=== PATIENT | female | born 1975 | race Caucasian/White ===

== ENCOUNTER 2021-08-25 17:47 | Emergency (ER) | payer OTHER, SELFPAY ==
[2021-08-25 17:57] VITALS: BP 169/91; PULSE 97; RESP 16; TEMP 37.1; O2SAT 99; BMI 37.2
--- NOTE | 2021-08-25 18:09 | DI.RAD.S_ITS ---
PROCEDURE: XR CHEST 1V INDICATIONS: chest pain TECHNIQUE: One view of the chest was acquired. COMPARISON: None. FINDINGS: Surgical changes and devices: None. Lungs and pleura: Diffuse interstitial prominence without acute airspace consolidation. No pleural effusions or pneumothorax. Mediastinum: Mediastinal contours appear normal. Heart size is normal. Bones and chest wall: No suspicious bony lesions. Overlying soft tissues appear unremarkable. IMPRESSION: Nonspecific, mild diffuse interstitial prominence without focal consolidations. Findings may represent an infectious/inflammatory process. Early pulmonary edema may have a similar appearance if clinically appropriate. Dictated by: Billy Carlson M.D. on 08/25/2021 at 18:53 Approved by: Billy Carlson M.D. on 08/25/2021 at 18:54
[2021-08-25 18:35] LABS: Add Manual Diff / Slide Review NO; Basophils Absolute Auto 100 /uL (0-100); Basophils Percent Auto 0.8 % (0-2); Eosinophils Absolute Auto 100 /uL (0-450); Eosinophils Percent Auto 1.3 % (2-4); Hematocrit 33.7 % (36-46); Hemoglobin 10.9 g/dL (12.0-16.0); Lymphocytes Absolute Auto 1700 /uL (1100-4500); Lymphocytes Percent Auto 22.9 % (25-40); Mean Corpuscular HGB Conc 32.5 % (30-36); Mean Corpuscular Hemoglobin 24.5 PG (26-34); Mean Corpuscular Volume 75.5 fL (80-100); Monocytes Absolute Auto 400 /uL (0-900); Monocytes Percent Auto 4.6 % (3-14); Neutrophils Absolute Auto 5400 /uL (1500-7000); Neutrophils Percent Auto 70.4 % (50-75); Platelet Count 297 X10^3/uL (150-400); Red Blood Cell Count 4.46 X10^6/uL (4.0-5.2); Red Cell Distribution Width 16.5 % (11.6-14.8); White Blood Cell Count 7.6 X10^3/uL (4.5-11.0)
[2021-08-25 18:40] LABS: Alanine Aminotransferase 34 IU/L (<35); Albumin 4.8 g/dL (3.5-5.0); Albumin Globulin Ratio 1.4 (1.0-2.8); Alkaline Phosphatase 94 U/L (38-126); Aspartate Aminotransferase 27 IU/L (14-36); BUN Creatinine Ratio 19.7 (6-22); Bilirubin Total 0.4 mg/dL (0.2-1.3); Blood Urea Nitrogen 14 mg/dL (7-17); Calcium 9.2 mg/dL (8.4-10.2); Carbon Dioxide 23 mmol/L (22-32); Chloride 106 mmol/L (98-107); Creatine Kinase 80 U/L (30-135); Estimated Glomerular Filt Rate > 60.0 mL/min (>60); Globulin 3.4 g/dL (1.7-4.1); Glucose 106 mg/dL (70-100); HEMOLYSIS < 15 (0-50); Lipase 76 U/L (23-300); Magnesium 1.9 mg/dL (1.6-2.3); Potassium 4.3 mmol/L (3.4-5.1); Sodium 138 mmol/L (137-145); Total Protein 8.2 g/dL (6.3-8.2)
[2021-08-25 18:51] LABS: Troponin I < 0.012 ng/mL (0.01-0.034)
[2021-08-25 20:04] VITALS: BP 140/72; PULSE 69; O2SAT 99
--- NOTE | 2021-08-25 20:20 | ED_ITS ---
HPI - General Adult General Chief complaint: Hypertension Stated complaint: vision changes, high blood pressure Time Seen by Provider: 08/25/21 20:20 Source: patient Mode of arrival: Ambulatory History of Present Illness HPI narrative: 46-year-old woman with a history of hypothyroidism and no significant other medical problems. She lost her primary care physician and has not seen anybody recently. She notes that blood pressures at home have typically been running in the 120/70 range in she had never consider blood pressure an issue. She notes that the last year has been particularly stressful and she has had between 4 5 episodes over the last year that she is concerned may have been panic attacks. She does not have a history of panic or anxiety. She describes these attacks as typically having some sort of systemic complaints such as nausea neck pain low- grade headache and typically resolve within 20-30 minutes. Today she had a similar episode that was associated with peripheral vision changes. She took her blood pressure during the episode and noticed that it was somewhat elevated and came to the emergency department for further evaluation. She reports no visual acuity changes, no recent nausea vomiting diarrhea or fevers. She has had no urinary symptoms and no flank pain. No chest pain or palpitations. Related Data Home Medications Medication Instructions Recorded Confirmed thyroid (pork) 180 mg tablet #0 03/02/16 ([place] Thyroid) Previous Rx's Medication Instructions Recorded hydrocodone 5 mg-acetaminophen 325 1 - 2 tab PO Q4H PRN #20 tab 03/02/16 mg tablet ([place]) ondansetron 4 mg disintegrating 4 mg SUBLINGUAL Q6HP PRN #10 odt 03/02/16 tablet (Zofran ODT) Allergies Allergy/AdvReac Type Severity Reaction Status Date / Time No Known Drug Allergies Allergy Verified 08/25/21 17:57 Review of Systems Review of Systems Narrative: Remainder of complete review of systems is otherwise unremarkable except for that included in the HPI. Patient History Medical History Heart murmur Hypothyroidism (acquired) Social History Smoking Status: Never smoker Smoking Status: Never smoker Substance Use Type: does not use Exam Initial Vital Signs Initial Vital Signs: Vital Signs Temperature 98.7 F 08/25/21 17:57 Pulse Rate 97 H 08/25/21 17:57 Respiratory Rate 16 08/25/21 17:57 Blood Pressure 169/91 H 08/25/21 17:57 Pulse Oximetry 99 08/25/21 17:57 General: Healthy appearing, in no acute distress. Able to give a complete and coherent history. Well-nourished well-developed HEENT: Moist mucous membranes, normal sclera with reactive pupils, Neck: No JVD, supple Respiratory: Lungs are clear to auscultation, no wheezing no rales no rhonchi. Full and symmetrical air movement Cardiac: Regular rate and rhythm 3/6 systolic ejection murmur without an opening snap Abdomen: Soft, nontender, good bowel tones, no flank pain Skin: Warm and dry, no rashes Neurologic: Grossly neurologically intact with no obvious asymmetries or abnormalities Extremities: No trauma, well perfused Psych: Cooperative, appropriate insight and affect Course Orders Ordered: ED Orders 08/25/21 18:09 XR chest 1V Stat Comprehensive Metabolic Panel Stat Lipase Stat Magnesium Stat Troponin & CK Cardiac Panel Stat EKG-12 Lead Stat 08/25/21 18:18 Complete Blood Count AUTO DIFF Stat Vital Signs Vital signs: Vital Signs - 8 hr 08/25/21 17:57 08/25/21 20:04 Temperature 98.7 F Pulse Rate 97 H 69 Respiratory Rate 16 Blood Pressure 169/91 H 140/72 Pulse Oximetry 99 99 Medical Decision Making Lab Data Result diagrams: 08/25/21 18:18 08/25/21 18:09 Labs: Lab Results 08/25/21 08/25/21 Range/Units 18:09 18:18 WBC 7.6 (4.5-11.0) X10^3/uL RBC 4.46 (4.0-5.2) X10^6/uL Hgb 10.9 L (12.0-16.0) g/dL Hct 33.7 L (36-46) % MCV 75.5 L (80-100) fL MCH 24.5 L (26-34) PG MCHC 32.5 (30-36) % RDW 16.5 H (11.6-14.8) % Plt Count 297 (150-400) X10^3/uL Neut % (Auto) 70.4 (50-75) % Lymph % (Auto) 22.9 L (25-40) % [place] % (Auto) 4.6 (3-14) % Eos % (Auto) 1.3 L (2-4) % Baso % (Auto) 0.8 (0-2) % Neut # (Auto) 5400 (9777-2717) /uL Lymph # (Auto) 1700 (8195-7908) /uL [place] # (Auto) 400 (0-900) /uL Eos # (Auto) 100 (0-450) /uL Baso # (Auto) 100 (0-100) /uL Sodium 138 (137-145) mmol/L Potassium 4.3 (3.4-5.1) mmol/L Chloride 106 (98-107) mmol/L Carbon Dioxide 23 (22-32) mmol/L BUN 14 (7-17) mg/dL Creatinine 0.71 (0.52-1.04) mg/dL Estimated GFR > 60.0 (>60) mL/min BUN/Creatinine Ratio 19.7 (6-22) Glucose 106 H (70-100) mg/dL Calcium 9.2 (8.4-10.2) mg/dL Magnesium 1.9 (1.6-2.3) mg/dL Total Bilirubin 0.4 (0.2-1.3) mg/dL AST 27 (14-36) IU/L ALT 34 (<35) IU/L Alkaline Phosphatase 94 (38-126) U/L Total Creatine Kinase 80 (30-135) U/L CK-MB (CK-2) TNP CK-MB (CK-2) Rel Index TNP Troponin I < 0.012 (0.01-0.034) ng/mL Total Protein 8.2 (6.3-8.2) g/dL Albumin 4.8 (3.5-5.0) g/dL Globulin 3.4 (1.7-4.1) g/dL Albumin/Globulin Ratio 1.4 (1.0-2.8) Lipase 76 (23-300) U/L Point of Care Testing Test Results Negative Urine Dip Bedside Urine Glucose Negative Bedside Urine Bilirubin - Negative Bedside Urine Ketone - Negative Urine Specific [place] 1.010 Bedside Urine Occult Blood - Negative Bedside Urine pH 6.0 Bedside Urine Protein - Negative Bedside Urine Urobilinogen - Negative Bedside Urine Nitrite - Negative Bedside Urine Leukocytes - Negative Esterase Point of care testing: Point of Care Testing Test Results Negative Urine Dip Bedside Urine Glucose Negative Bedside Urine Bilirubin - Negative Bedside Urine Ketone - Negative Urine Specific [place] 1.010 Bedside Urine Occult Blood - Negative Bedside Urine pH 6.0 Bedside Urine Protein - Negative Bedside Urine Urobilinogen - Negative Bedside Urine Nitrite - Negative Bedside Urine Leukocytes - Negative Esterase Imaging Data Chest x-ray: Radiologist's Impression: FINDINGS:? ? Surgical changes and devices:? None.? ? Lungs and pleura:? Diffuse interstitial prominence without acute airspace consolidation.? No pleural effusions or pneumothorax.? ? Mediastinum:? Mediastinal contours appear normal.? Heart size is normal.? ? Bones and chest wall:? No suspicious bony lesions.? Overlying soft tissues appear unremarkable.? ? IMPRESSION:? Nonspecific, mild diffuse interstitial prominence without focal consolidations.? Findings may represent an infectious/inflammatory process.? Early pulmonary edema may have a similar appearance if clinically appropriate. ? ? Dictated by: Billy Carlson M.D. on 08/25/2021 at 18:53 ? ? ECG Data Interpretation: Sinus rhythm at a rate of 66 Normal intervals, normal axis No acute ischemic changes MDM Narrative Medical decision making narrative: 46-year-old woman presents with 20 minutes of peripheral visual change dull headache and concerns of high blood pressure. On further questioning I am wondering if these ?panic attack? episodes that she is having that sound far mor e mild than a traditional panic attack or actually some type of ocular migraine for other migraine variant. While in the emergency department her blood pressure has come down nicely and at time of discharge is 130/60 with no other intervention. Labs, EKG and chest x-ray are all equally reassuring. We discussed following up with the primary doctor. I recommended keeping track of blood pressures regularly to discuss this when she does establish care with her doctor. We also discussed lifestyle changes to better manage stress, diet and increasing exercise. We discussed caffeine and I suggested avoiding caffeine in the mid afternoons and seeing if this helps improve overall sleep as well as trying to decrease carbohydrates in the day so she does not have the afternoon slump that wants her to have the caffeine in the afternoon Regarding her heart murmur there is no opening snaps she notes that the murmur has been present the majority of her life the last echo she had was at the age o f 18. The possibility of mitral valve prolapse and association with anxiety attacks as well as headaches. Did recommend she discuss this with her new primary care physician and consider echocardiogram as an outpatient. Questions are answered, reassurance is given she is safe for home discharge Discharge Plan Departure Patient Disposition: Home Clinical Impression: Ocular migraine, Heart murmur Instructions: DI for High Blood Pressure Activity Restrictions/Additional Instructions: Thank you for coming in today Your workup was absolutely reassuring with no evidence of acute stroke. Your blood pressures come down nicely with no intervention on our part. I would recommend that you continue checking daily blood pressures and discussed these with her primary care doctor. The 1st steps in getting to the help BS blood pressure are managing lifestyle including reducing stressors as much as possible, improving diet, regular exercise, improving sleep, decreasing caffeine. Frequently these interventions can lead to weight loss and weight loss also improves blood pressure. I also noticed a small heart murmur. It does not sound particularly concerning however, it likely is worth having an outpatient echocardiogram to fully evaluate the heart murmur and see if any additional follow-up is required. I wish you the very best Prescriptions: No Action thyroid (pork) [[place] Thyroid] 180 mg tablet Qty: 0 0RF hydrocodone-acetaminophen [[place]] 5 MG/325 MG tablet 1 - 2 tab PO Q4H PRNQty: 20 0RF ondansetron [Zofran ODT] 4 MG tablet,disintegrating 4 mg Sublingual Q6HP PRNQty: 10 0RF
== END 2021-08-25 20:54 | disposition home or self-care (01) ==
PROVIDERS: Emergency Provider Emergency Medicine
DX: G43.809 Other migraine, not intractable, without status migrainosus (principal); R01.1 Cardiac murmur, unspecified
CPT/HCPCS: 36415; 71045; 80053; 81003; 81025; 82550; 83690; 83735; 84484; 85025; 93005; 99283; 99284

== ENCOUNTER 2022-09-19 21:10 | Emergency (ER) | payer OTHER, SELFPAY ==
[2022-09-19] VITALS (7 sets, daily range): BP systolic 121–180; BP diastolic 60–100; PULSE 70–90; RESP 16–22; TEMP 36.9; O2SAT 97–99; BMI 35.4
--- NOTE | 2022-09-19 21:22 | DI.RAD.S_ITS ---
PROCEDURE: XR CHEST 1V INDICATIONS: chest pain TECHNIQUE: One view of the chest was acquired. COMPARISON: [facility], CR, XR CHEST 1V, 08/25/2021, 18:19. FINDINGS: Surgical changes and devices: None. Lungs and pleura: Lungs are clear. No pleural effusions or pneumothorax. Mediastinum: Mediastinal contours appear normal. Heart size is normal. Bones and chest wall: No suspicious bony lesions. Overlying soft tissues appear unremarkable. IMPRESSION: 1. No acute cardiopulmonary disease. Dictated by: Juan Gonzalez M.D. on 09/19/2022 at 23:12 Approved by: Juan Gonzalez M.D. on 09/19/2022 at 23:12
[2022-09-19] MEDS: ASPIRIN 81 MG CHEW TAB 324 MG PO (21:38)
[2022-09-19 21:40] LABS: INR 0.9 (0.9-1.3); Prothrombin Time 10.8 SECONDS (10.1-12.7)
[2022-09-19 21:44] LABS: Add Manual Diff / Slide Review NO; Basophils Absolute Auto 100 /uL (0-100); Basophils Percent Auto 0.9 % (0-2); Eosinophils Absolute Auto 100 /uL (0-450); Eosinophils Percent Auto 1.6 % (2-4); Hematocrit 33.2 % (36-46); Hemoglobin 10.7 g/dL (12.0-16.0); Lymphocytes Absolute Auto 2400 /uL (1100-4500); Lymphocytes Percent Auto 29.1 % (25-40); Mean Corpuscular HGB Conc 32.2 % (30-36); Mean Corpuscular Hemoglobin 22.8 PG (26-34); Mean Corpuscular Volume 70.9 fL (80-100); Monocytes Absolute Auto 600 /uL (0-900); Monocytes Percent Auto 7.1 % (3-14); Neutrophils Absolute Auto 5000 /uL (1500-7000); Neutrophils Percent Auto 61.3 % (50-75); Platelet Count 342 X10^3/uL (150-400); Red Blood Cell Count 4.68 X10^6/uL (4.0-5.2); White Blood Cell Count 8.1 X10^3/uL (4.5-11.0)
[2022-09-19 21:45] LABS: Alanine Aminotransferase 25 IU/L (<35); Albumin 4.9 g/dL (3.5-5.0); Albumin Globulin Ratio 1.5 (1.0-2.8); Alkaline Phosphatase 116 U/L (38-126); Aspartate Aminotransferase 21 IU/L (14-36); BUN Creatinine Ratio 18.2 (6-22); Bilirubin Total 0.4 mg/dL (0.2-1.3); Blood Urea Nitrogen 14 mg/dL (7-17); Carbon Dioxide 27 mmol/L (22-32); Chloride 103 mmol/L (98-107); Creatine Kinase 71 U/L (30-135); Estimated Glomerular Filt Rate > 60 mL/min (>60); Globulin 3.2 g/dL (1.7-4.1); Glucose 146 mg/dL (70-100); HEMOLYSIS < 15 (0-50); Lipase 113 U/L (23-300); Magnesium 1.9 mg/dL (1.6-2.3); Potassium 3.9 mmol/L (3.4-5.1); Sodium 139 mmol/L (137-145); Total Protein 8.1 g/dL (6.3-8.2)
[2022-09-19 21:56] LABS: PTT Partial Thromboplastin Tim 30 SECONDS (26-36)
[2022-09-19 21:57] LABS: Troponin I < 0.012 ng/mL (0.01-0.034)
[2022-09-19 22:07] LABS: COVID19 -Nasal RAPID Negative (Negative)
[2022-09-19 23:38] LABS: Creatine Kinase 64 U/L (30-135)
[2022-09-19 23:51] LABS: Troponin I < 0.012 ng/mL (0.01-0.034)
[2022-09-20] VITALS: BP 126/60; PULSE 72; RESP 17; O2SAT 98
--- NOTE | 2022-09-20 00:17 | ED_ITS ---
HPI - Chest Pain General Chief Complaint: Chest Pain Stated Complaint: thinks she's having a heart attack- chest pain- Time Seen by Provider: 09/19/22 21:58 Source: patient and family Mode of arrival: Ambulatory Limitations: no limitations History of Present Illness HPI narrative: 47-year-old female here for evaluation of left-sided chest discomfort. She states that over the past couple days she just generally has not felt very well and felt fatigued. Earlier today she started to have discomfort in her chest that did radiate to her left side. At the time of my evaluation her symptoms have really improved. No abdominal pain. No nausea or vomiting. No change in bowel habits. Has never had symptoms like this in the past. Related Data Home Medications Medication Instructions Recorded Confirmed thyroid (pork) 180 mg tablet ##0 03/02/16 ([place] Thyroid) Previous Rx's Medication Instructions Recorded hydrocodone 5 mg-acetaminophen 325 1 - 2 tab PO Q4H PRN #20 tabs 03/02/16 mg tablet ([place]) ondansetron 4 mg disintegrating 4 mg sublingual Q6HP PRN ##10 03/02/16 tablet (Zofran ODT) Allergies Allergy/AdvReac Type Severity Reaction Status Date / Time No Known Drug Allergies Allergy Verified 08/25/21 17:57 Review of Systems Constitutional Constitutional: Reports system reviewed and no additional complaints, except as documented Cardiovascular Cardiovascular: Reports system reviewed and no additional complaints, except as documented Respiratory Respiratory: Reports system reviewed and no additional complaints, except as documented Integumentary/Breasts Skin/Breast: Reports system reviewed and no additional complaints, except as documented Neurologic Neurologic: Reports system reviewed and no additional complaints, except as documented Hematologic/Lymphatic On Anticoagulants: No Patient History Medical History Heart murmur Hypothyroidism (acquired) Social History Smoking Status: Never smoker Smoking Status: Never smoker Substance Use Type: does not use Exam Initial Vital Signs Initial Vital Signs: Vital Signs Temperature 98.4 F 09/19/22 21:12 Pulse Rate 90 09/19/22 21:12 Respiratory Rate 18 09/19/22 21:12 Blood Pressure 180/100 H 09/19/22 21:12 Pulse Oximetry 98 09/19/22 21:12 Oxygen Delivery Method Room Air 09/19/22 21:12 Const General: cooperative, comfortable and No ill appearing Resp Effort & Inspection: normal respiratory effort Auscultation: clear to auscultation bilaterally Cardio Rate: regular rate GI Inspection: normal to inspection Skin General: no rashes or lesions noted Neuro General: patient alert, patient awake, patient oriented x3 and moves all extremities Extrem General: capillary refill normal Scores HEART Score Heart Score history: Slightly Suspicious Heart Score EKG: Normal Heart Score Age: 45-64 years old Heart Score risk factors: No known risk factors Heart Score troponin: < or = to normal limit Heart Score Total: 1 Course Orders Ordered: ED Orders 09/19/22 21:22 XR chest 1V Stat EKG-12 Lead Stat 09/19/22 21:25 Complete Blood Count AUTO DIFF Stat Comprehensive Metabolic Panel Stat Lipase Stat Magnesium Stat PTT Partial Thromboplastin [place] Stat Prothrombin Time INR Stat Troponin & CK Cardiac Panel Stat 09/19/22 21:30 COVID19 -Nasal RAPID Stat 09/19/22 23:16 Troponin & CK Cardiac Panel Stat Discontinued Medications Aspirin (Aspirin 81 Mg Chew Tab) 324 mg PO NOW ONE Stop: 09/19/22 21:23 Last Admin: 09/19/22 21:38 Dose: 324 mg Documented By: ALTHEA Vital Signs Vital signs: Vital Signs - 8 hr 09/19/22 22:30 09/19/22 22:30 09/19/22 23:00 Pulse Rate 73 Respiratory Rate 16 Blood Pressure 124/66 122/61 Pulse Oximetry 97 Oxygen Delivery Method 09/19/22 23:00 09/19/22 23:11 09/19/22 23:11 Pulse Rate 73 80 Respiratory Rate 16 22 Blood Pressure 125/61 Pulse Oximetry 98 98 Oxygen Delivery Method 09/19/22 23:30 09/19/22 23:30 09/20/22 00:00 Pulse Rate 70 Respiratory Rate 17 Blood Pressure 121/60 126/60 Pulse Oximetry 98 Oxygen Delivery Method Room Air 09/20/22 00:00 Pulse Rate 72 Respiratory Rate 17 Blood Pressure Pulse Oximetry 98 Oxygen Delivery Method MDM - Chest Pain Lab Data Attestation: I reviewed the patient's lab results. 09/19/22 21:25 09/19/22 21:25 Labs: Lab Results 09/19/22 09/19/22 09/19/22 Range/Units 21:25 21:25 21:25 WBC 8.1 (4.5-11.0) X10^3/uL RBC 4.68 (4.0-5.2) X10^6/uL Hgb 10.7 L (12.0-16.0) g/dL Hct 33.2 L (36-46) % MCV 70.9 L (80-100) fL MCH 22.8 L (26-34) PG MCHC 32.2 (30-36) % RDW 17.0 H (11.6-14.8) % Plt Count 342 (150-400) X10^3/uL Neut % (Auto) 61.3 (50-75) % Lymph % (Auto) 29.1 (25-40) % [place] % (Auto) 7.1 (3-14) % Eos % (Auto) 1.6 L (2-4) % Baso % (Auto) 0.9 (0-2) % Neut # (Auto) 5000 (9946-6482) /uL Lymph # (Auto) 2400 (5514-7440) /uL [place] # (Auto) 600 (0-900) /uL Eos # (Auto) 100 (0-450) /uL Baso # (Auto) 100 (0-100) /uL PT 10.8 (10.1-12.7) SECONDS INR 0.9 (0.9-1.3) APTT 30 (26-36) SECONDS Sodium 139 (137-145) mmol/L Potassium 3.9 (3.4-5.1) mmol/L Chloride 103 (98-107) mmol/L Carbon Dioxide 27 (22-32) mmol/L BUN 14 (7-17) mg/dL Creatinine 0.77 (0.52-1.04) mg/dL Estimated GFR > 60 (>60) mL/min BUN/Creatinine Ratio 18.2 (6-22) Glucose 146 H (70-100) mg/dL Calcium 9.0 (8.4-10.2) mg/dL Magnesium 1.9 (1.6-2.3) mg/dL Total Bilirubin 0.4 (0.2-1.3) mg/dL AST 21 (14-36) IU/L ALT 25 (<35) IU/L Alkaline Phosphatase 116 (38-126) U/L Total Creatine Kinase 71 (30-135) U/L CK-MB (CK-2) TNP CK-MB (CK-2) Rel Index TNP Troponin I < 0.012 (0.01-0.034) ng/mL Total Protein 8.1 (6.3-8.2) g/dL Albumin 4.9 (3.5-5.0) g/dL Globulin 3.2 (1.7-4.1) g/dL Albumin/Globulin Ratio 1.5 (1.0-2.8) Lipase 113 (23-300) U/L SARS-CoV-2 (PCR) (Negative) 09/19/22 09/19/22 Range/Units 21:30 23:16 WBC (4.5-11.0) X10^3/uL RBC (4.0-5.2) X10^6/uL Hgb (12.0-16.0) g/dL Hct (36-46) % MCV (80-100) fL MCH (26-34) PG MCHC (30-36) % RDW (11.6-14.8) % Plt Count (150-400) X10^3/uL Neut % (Auto) (50-75) % Lymph % (Auto) (25-40) % [place] % (Auto) (3-14) % Eos % (Auto) (2-4) % Baso % (Auto) (0-2) % Neut # (Auto) (8027-5228) /uL Lymph # (Auto) (5954-2300) /uL [place] # (Auto) (0-900) /uL Eos # (Auto) (0-450) /uL Baso # (Auto) (0-100) /uL PT (10.1-12.7) SECONDS INR (0.9-1.3) APTT (26-36) SECONDS Sodium (137-145) mmol/L Potassium (3.4-5.1) mmol/L Chloride (98-107) mmol/L Carbon Dioxide (22-32) mmol/L BUN (7-17) mg/dL Creatinine (0.52-1.04) mg/dL Estimated GFR (>60) mL/min BUN/Creatinine Ratio (6-22) Glucose (70-100) mg/dL Calcium (8.4-10.2) mg/dL Magnesium (1.6-2.3) mg/dL Total Bilirubin (0.2-1.3) mg/dL AST (14-36) IU/L ALT (<35) IU/L Alkaline Phosphatase (38-126) U/L Total Creatine Kinase 64 (30-135) U/L CK-MB (CK-2) TNP CK-MB (CK-2) Rel Index TNP Troponin I < 0.012 (0.01-0.034) ng/mL Total Protein (6.3-8.2) g/dL Albumin (3.5-5.0) g/dL Globulin (1.7-4.1) g/dL Albumin/Globulin Ratio (1.0-2.8) Lipase (23-300) U/L SARS-CoV-2 (PCR) Negative (Negative) Imaging Data Chest x-ray: Radiologist's Impression: PROCEDURE:? XR CHEST 1V ? INDICATIONS:? chest pain ? TECHNIQUE:? One view of the chest was acquired.? ? COMPARISON:? [facility], , XR CHEST 1V, 08/25/2021, 18:19. ? FINDINGS:? ? Surgical changes and devices:? None.? ? Lungs and pleura:? Lungs are clear.? No pleural effusions or pneumothorax.? ? Mediastinum:? Mediastinal contours appear normal.? Heart size is normal.? ? Bones and chest wall:? No suspicious bony lesions.? Overlying soft tissues appear unremarkable.? ? IMPRESSION:? ? 1.? No acute cardiopulmonary disease. ECG Data Interpretation: Sinus rhythm Ventricular rate 92 Normal axis Normal QRS No ST T wave changes MDM Narrative Medical decision making narrative: Patient is asymptomatic. Low risk heart score. EKG unremarkable. Chest x-ray unremarkable. Exam unremarkable. Troponins are negative. Lungs are unremarkable. No indication for antibiotics. Discussion with her regarding her symptoms. She does understand the lack of a definitive diagnosis although she was given very specific return precautions. Advised that she contact her primary doctor for follow-up. She expressed understanding and agreement. Discharge Plan Departure Patient Disposition: Home Clinical Impression: Atypical chest pain Instructions: DI for Atypical Chest Pain Activity Restrictions/Additional Instructions: I do recommend that you talk with your primary doctor about further workup to include potentially having a Holter monitor or even a stress test. Continue all of your medications as directed. Return to the emergency department for new or worsening symptoms. Prescriptions: No Action thyroid (pork) [[place] Thyroid] 180 mg tablet Qty: 0 hydrocodone-acetaminophen [[place]] 5 MG/325 MG tablet 1 - 2 tab PO Q4H PRNQty: 20 0RF ondansetron [Zofran ODT] 4 MG tablet,disintegrating 4 mg Sublingual Q6HP PRNQty: 10 0RF Stand Alone Forms: Patient Portal/API
== END 2022-09-20 00:35 | disposition home or self-care (01) ==
PROVIDERS: Emergency Provider Emergency Medicine
DX: R07.89 Other chest pain (principal); Z20.822 Contact with and (suspected) exposure to COVID-19
CPT/HCPCS: 36415; 71045; 80053; 82550; 83690; 83735; 84484; 85025; 85610; 85730; 87635; 93005; 93010; 99284; C9803

== ENCOUNTER 2024-10-31 19:51 | Emergency (ER) | payer OTHER, SELFPAY ==
[2024-10-31 20:05] VITALS: BP 177/84; PULSE 83; RESP 16; TEMP 36.9; O2SAT 98; BMI 35.4
[2024-10-31 21:41] VITALS: BP 167/119; PULSE 76; RESP 22; O2SAT 99
[2024-10-31 21:51] LABS: Urine Volume 10mL (spun)
[2024-10-31 21:52] LABS: Bacteria Urine Few (2-10); Culture Indicated Urine Cult Not Indicated; RBC Urine 10-30/HPF (0-5/HPF); Squamous Epithelial Cell Urine 5-10 /HPF (0-5/HPF); WBC Urine 0-1/HPF (0-5/HPF)
[2024-11-01] VITALS (7 sets, daily range): BP systolic 113–163; BP diastolic 56–75; PULSE 60–71; O2SAT 96–99
--- NOTE | 2024-11-01 00:20 | DI.CT.S_ITS ---
PROCEDURE: CT ABDOMEN PELVIS WO CON INDICATIONS: pain, possible kidney stone TECHNIQUE: After the administration of oral contrast, 5 mm thick sections acquired from the diaphragms to the symphysis. 5 mm coronal and sagittal reformats were performed. For radiation dose reduction, the following was used: automated exposure control, adjustment of mA and/or kV according to patient size. COMPARISON: Not available FINDINGS: Image quality: Diagnostic Lower chest: Small left fat containing Bochdalek's hernia. Normal heart size. Liver: Hepatic steatosis and hepatomegaly. No contour deforming mass. Solid organs are not well assessed on noncontrast CT Gallbladder and biliary system: Unremarkable, nondilated Pancreas: No ductal dilation Spleen: Prominent at 12 cm Adrenals: No discrete nodules Kidneys: Moderate to severe left hydroureteronephrosis. 9 x 8 x 7 mm stone is seen at the left UVJ. [id number] surrounding edema. Nonobstructing right calyceal calculi are seen, under 5 mm. No right hydronephrosis. Vessels and lymph nodes: No abdominal aortic aneurysm. No pathologic lymph nodes by size criteria. Bowel and peritoneum: No small bowel obstruction. No pathologic ascites or drainable abscess. Nondilated appendix Body wall: Tiny fat containing umbilical hernia Pelvis: Under distended urinary bladder. Pelvic phleboliths are seen. Probable right 3.1 cm ovarian cyst. Bones: No aggressive appearing osseous abnormality. There are degenerative changes. IMPRESSION: Moderate to severe left hydroureteronephrosis due to a UVJ stone measuring up to 9 mm. Nonobstructing small right renal calculi also seen. Hepatomegaly and steatosis. Other findings above. Dictated by: Mitchell Miller M.D. on 11/01/2024 at 0:41 Approved by: Mitchell Miller M.D. on 11/01/2024 at 0:44
[2024-11-01] MEDS: ONDANSETRON 4 MG/2 ML INJ IV (00:38)
--- NOTE | 2024-11-01 00:43 | ED.GENADULT ---
HPI - General Adult General Chief complaint: Urogenital-Female Stated complaint: pain possable kiney stone Time Seen by Provider: 11/01/24 00:20 Source: patient Mode of arrival: Ambulatory History of Present Illness HPI narrative: 49-year-old female with history of kidney stones, complains of right groin area discomfort typical of her previous kidney pain. Last month she had suspected left kidney stone, took a dose of Flomax, then seemed to have resolution of the symptoms. She is still has Flomax at home to use if needed, in fact took a dose earlier today. She has some nausea without vomiting. No loose stools or black or red stools. No lifting, twisting, trauma, new activities. No painful or frequent urination. Related Data Home Medications ?Medication ?Instructions ?Recorded ?Confirmed propranolol 10 mg tablet 10 mg PO PRN PRN anxiety, elevated 11/01/24 11/01/24 heart rate tamsulosin 0.4 mg capsule (Flomax) 0.4 mg PO DAILY 11/01/24 11/01/24 Previous Rx's ?Medication ?Instructions ?Recorded hydrocodone 5 mg-acetaminophen 325 1 tab PO Q6H PRN pain #14 tabs 11/01/24 mg tablet naproxen 500 mg tablet 500 mg PO BID 7 days #14 tabs 11/01/24 Allergies Allergy/AdvReac Type Severity Reaction Status Date / Time No Known Drug Allergies Allergy Verified 10/31/24 20:06 Patient History Medical History Heart murmur Hypothyroidism (acquired) Social History Smoking Status: Never smoker Smoking Status: Never smoker Exam Narrative Exam Narrative: GENERAL: Well-developed patient, in mild distress. HEAD: Atraumatic. Normocephalic. EYES: Pupils equal round and reactive. Extraocular motions intact. No scleral icterus. No injection or drainage. ENT: Nose without bleeding, purulent drainage. Throat without erythema, tonsillar hypertrophy or exudate. Airway patent. NECK: Trachea midline. Non tender CARDIOVASCULAR: Regular rate and rhythm without murmurs, gallops, or rubs. RESPIRATORY: Clear to auscultation. Breath sounds equal bilaterally. No wheezes, rales, or rhonchi. GASTROINTESTINAL: Abdomen soft, non-tender, nondistended. EXTREMITIES: No edema or joint tenderness. BACK: Nontender without deformity or crepitance. No flank tenderness. NEURO: AOx3. Motor functions grossly nonfocal SKIN: No rash or erythema of visible areas Initial Vital Signs Initial Vital Signs: Vital Signs Temperature 98.5 F 10/31/24 20:05 Pulse Rate 83 10/31/24 20:05 Respiratory Rate 16 10/31/24 20:05 Blood Pressure 177/84 H 10/31/24 20:05 Pulse Oximetry 98 10/31/24 20:05 Oxygen Delivery Method Room Air 10/31/24 20:05 Course Orders Ordered: ED Orders 10/31/24 20:30 Urine Culture Stat Urine Microscopic Stat 11/01/24 00:20 CT abdomen pelvis wo con Stat 11/01/24 01:00 CBC Auto Diff [Complete Blood Count AUTO DIFF] Stat CMP [Comprehensive Metabolic Panel] Stat Discontinued Medications Hydrocodone Bitart/Acetaminophen (Hydrocodone/Acet 5/325 Prepack) 1 bottle MISC DIRECTED ONE Stop: 11/01/24 02:05 Last Admin: 11/01/24 02:15 Dose: 1 bottle Documented By: BRAD Hydromorphone HCl (Hydromorphone 0.5 Mg Inj) 0.5 mg IV NOW ONE Stop: 11/01/24 00:38 Last Admin: 11/01/24 00:45 Dose: 0.5 mg Documented By: JAVIER Ketorolac Tromethamine (Ketorolac 30 Mg/Ml Vial) 15 mg IV NOW ONE Stop: 11/01/24 00:50 Last Admin: 11/01/24 01:00 Dose: 15 mg Documented By: JAVIER Ondansetron HCl (Ondansetron 4 Mg/2 Ml Inj) 4 mg IV NOW PRN PRN Reason: Nausea And Vomiting Last Admin: 11/01/24 00:38 Dose: 4 mg Documented By: JAVIER Ondansetron HCl (Ondansetron 4 Mg Odt) 4 mg PO NOW PRN PRN Reason: Nausea And Vomiting Ondansetron HCl (Ondansetron 4 Mg Odt Prepack) 1 bottle MISC DIRECTED ONE Stop: 11/01/24 02:05 Last Admin: 11/01/24 02:15 Dose: 1 bottle Documented By: BRAD Vital Signs Vital signs: Vital Signs - 8 hr 10/31/24 20:05 10/31/24 21:41 11/01/24 00:32 Temperature 98.5 F Pulse Rate 83 76 69 Respiratory Rate 16 22 Blood Pressure 177/84 H 167/119 H Pulse Oximetry 98 99 98 Oxygen Delivery Method Room Air Room Air 11/01/24 00:33 11/01/24 00:33 11/01/24 01:00 Temperature Pulse Rate 71 63 Respiratory Rate Blood Pressure 151/71 H Pulse Oximetry 99 96 Oxygen Delivery Method 11/01/24 01:00 11/01/24 01:30 11/01/24 01:31 Temperature Pulse Rate 60 60 Respiratory Rate Blood Pressure 163/75 H Pulse Oximetry 98 98 Oxygen Delivery Method 11/01/24 01:31 11/01/24 02:00 11/01/24 02:00 Temperature Pulse Rate 60 Respiratory Rate Blood Pressure 135/67 131/63 Pulse Oximetry 97 Oxygen Delivery Method 11/01/24 02:12 11/01/24 02:12 Temperature Pulse Rate 70 Respiratory Rate Blood Pressure 113/56 L Pulse Oximetry 99 Oxygen Delivery Method Medical Decision Making Lab Data Lab results reviewed: Yes I reviewed the patient's lab results. Lab results narrative: White blood cell count 03501, hemoglobin 9.5, platelets adequate. Glucose 146. BUN 15 with creatinine 1.02 normal renal function. Electrolytes show sodium 132 diminished, normal potassium, serum CO2 22 normal. Liver functions normal. Urinalysis without obvious infection. 11/01/24 01:00 11/01/24 01:00 Labs: Lab Results 10/31/24 11/01/24 Range/Units 20:30 01:00 WBC 11.1 H (4.5-11.0) X10^3/uL RBC 4.28 (4.0-5.2) X10^6/uL Hgb 9.5 L (12.0-16.0) g/dL Hct 30.0 L (36-46) % MCV 70.1 L (80-100) fL MCH 22.1 L (26-34) PG MCHC 31.6 (30-36) % RDW 18.4 H (11.6-14.8) % Plt Count 283 (150-400) X10^3/uL Neut % (Auto) 86.9 H (50-75) % Lymph % (Auto) 8.8 L (25-40) % Gonzales % (Auto) 3.8 (3-14) % Eos % (Auto) 0.2 L (2-4) % Baso % (Auto) 0.3 (0-2) % Neut # (Auto) 9700 H (8729-1904) /uL Lymph # (Auto) 1000 L (8439-7755) /uL Gonzales # (Auto) 400 (0-900) /uL Eos # (Auto) 0 (0-450) /uL Baso # (Auto) 0 (0-100) /uL Sodium 132 L (137-145) mmol/L Potassium 3.9 (3.4-5.1) mmol/L Chloride 100 (98-107) mmol/L Carbon Dioxide 22 (22-32) mmol/L BUN 15 (7-17) mg/dL Creatinine 1.02 (0.52-1.04) mg/dL Estimated GFR > 60 (>60) mL/min BUN/Creatinine Ratio 14.7 (6-22) Glucose 146 H (70-99) mg/dL Calcium 9.4 (8.4-10.2) mg/dL Total Bilirubin 0.7 (0.2-1.3) mg/dL AST 26 (14-36) IU/L ALT 28 (<35) IU/L Alkaline Phosphatase 83 (38-126) U/L Total Protein 7.4 (6.3-8.2) g/dL Albumin 4.4 (3.5-5.0) g/dL Globulin 3.0 (1.7-4.1) g/dL Albumin/Globulin Ratio 1.5 (1.0-2.8) Urine RBC 10-30/hpf H (0-5/HPF) Urine WBC 0-1/hpf (0-5/HPF) Ur Squamous Epith Cells 5-10 /hpf H (0-5/HPF) Urine Bacteria Few (2-10) H (None) Ur Culture Indicated? Cult not indicated Vol Urine Centrifuged 10ml (spun) Point of Care Testing Test Results Negative Urine Dip Bedside Urine Glucose Negative Bedside Urine Bilirubin - Negative Bedside Urine Ketone ++ 40 Urine Specific [place] 1.015 Bedside Urine Occult Blood ++ Bedside Urine pH 6.0 Bedside Urine Protein - Negative Bedside Urine Urobilinogen - Negative Bedside Urine Nitrite - Negative Bedside Urine Leukocytes - Negative Esterase Point of care testing: Point of Care Testing Test Results Negative Urine Dip Bedside Urine Glucose Negative Bedside Urine Bilirubin - Negative Bedside Urine Ketone ++ 40 Urine Specific [place] 1.015 Bedside Urine Occult Blood ++ Bedside Urine pH 6.0 Bedside Urine Protein - Negative Bedside Urine Urobilinogen - Negative Bedside Urine Nitrite - Negative Bedside Urine Leukocytes - Negative Esterase Imaging Data CT scan - abdomen/pelvis: Radiologist's Impression: [address] [address] [address] Scan Report Signed Patient: Layne Tompkins MR#: [id number] : 1975 Acct:[id number] Age/Sex: 49 / F Date of Service: 11/01/24 Loc: ED Accession Number: [id number] Procedure: CT abdomen pelvis wo con Ordering Provider: Kenji Kahn MD PROCEDURE: CT ABDOMEN PELVIS WO CON INDICATIONS: pain, possible kidney stone TECHNIQUE: After the administration of oral contrast, 5 mm thick sections acquired from the diaphragms to the symphysis. 5 mm coronal and sagittal reformats were performed. For radiation dose reduction, the following was used: automated exposure control, adjustment of mA and/or kV according to patient size. COMPARISON: Not available FINDINGS: Image quality: Diagnostic Lower chest: Small left fat containing Bochdalek's hernia. Normal heart size. Liver: Hepatic steatosis and hepatomegaly. No contour deforming mass. Solid organs are not well assessed on noncontrast CT Gallbladder and biliary system: Unremarkable, nondilated Pancreas: No ductal dilation Spleen: Prominent at 12 cm Adrenals: No discrete nodules Kidneys: Moderate to severe left hydroureteronephrosis. 9 x 8 x 7 mm stone is seen at the left UVJ. Lmcy-tn-soofenbt surrounding edema. Nonobstructing right calyceal calculi are seen, under 5 mm. No right hydronephrosis. Vessels and lymph nodes: No abdominal aortic aneurysm. No pathologic lymph nodes by size criteria. Bowel and peritoneum: No small bowel obstruction. No pathologic ascites or drainable abscess. Nondilated appendix Body wall: Tiny fat containing umbilical hernia Pelvis: Under distended urinary bladder. Pelvic phleboliths are seen. Probable right 3.1 cm ovarian cyst. Bones: No aggressive appearing osseous abnormality. There are degenerative changes. IMPRESSION: Moderate to severe left hydroureteronephrosis due to a UVJ stone measuring up to 9 mm. Nonobstructing small right renal calculi also seen. Hepatomegaly and steatosis. Other findings above. Dictated by: Mitchell Miller M.D. on 11/01/2024 at 0:41 Approved by: Mitchell Miller M.D. on 11/01/2024 at 0:44 MDM Narrative Medical decision making narrative: 49-year-old female with history of kidney stones, last month had left lower quadrant left groin area stone that seemed to be improved after taking Flomax dose. No confirmation of passage recalled. Now with right groin area discomfort, concerned she might be passing another stone. No fevers or chills. No nausea or vomiting. Initial labs: White blood cell count 06042, hemoglobin 9.5, platelets adequate. Glucose 146. BUN 15 with creatinine 1.02 normal renal function. Electrolytes show sodium 132 diminished, normal potassium, serum CO2 22 normal. Liver functions normal. Urinalysis without obvious infection. CT abdomen and pelvis. IMPRESSION: Moderate to severe left hydroureteronephrosis due to a UVJ stone measuring up to 9 mm. Nonobstructing small right renal calculi also seen. Hepatomegaly and steatosis. Other findings above.? See radiology report. Urinalysis without obvious infection. Afebrile, vitals stable. Very large left distal stone, consider stenting, no local urologists on-call. We will discuss case with [facility] urology on-call. Patient aware. 0140, case discussed with [facility] urology Dr. Fregoso, normal creatinine noted, no fever, urine not obviously infected, advises further trial of expulsive treatment with close follow up to ensure the stone has passed and not growing within the ureter. Can follow up with local urologists early this week. Patient given home pack and prescriptions for analgesics, home pack antiemetic, prescriptions for naproxen. Has supply of Flomax to take daily. Advised follow up with local urologist Dr. Ceja or Dr. Dey early this next week. Home with family. Return precautions discussed. Discharge Plan Departure Patient Disposition: Home Clinical Impression: Left ureteral stone Instructions: DI for Kidney Stones Activity Restrictions/Additional Instructions: History of kidney stones, left-sided lower abdominal pain responsive to Flomax last month. Now with lower suprapubic area discomfort. CT abdomen and pelvis imaging tonight showed a very large 9 x 8 x 7 mm stone in the distal left ureter, blocking the ureter. No fever on triage, normal vital signs. Urinalysis without infection at this time. Given the very large size, case was discussed with on-call Urology at [facility] covering this weekend, who felt that you could have follow up early this week with local urologists, as long as you had control of your pain, and develop no fever, and we are able to keep medications down. Trial of analgesics and antiemetic antinausea control medications. Prescription for naproxen sent to your pharmacy, you have a supply of Flomax to use daily, prescription for hydrocodone/acetaminophen sent to your pharmacy, home pack of hydrocodone/acetaminophen dispensed, home pack of ondansetron oral dissolvable tablet for control of nausea dispensed. Follow up with local urologists, contact information provided. Return earlier to this/nearest emergency department for any change worsening symptoms or any concerns prior. Prescriptions: New naproxen 500 mg tablet 500 mg PO BID 7 Days Qty: 14 0RF hydrocodone-acetaminophen 5-325 mg tablet 1 tab PO Q6H PRN (Reason: pain) Qty: 14 0RF No Action tamsulosin [Flomax] 0.4 mg capsule 0.4 mg PO DAILY propranolol 10 mg tablet 10 mg PO PRN PRN (Reason: anxiety, elevated heart rate) Referrals: Job Ceja DO [Physician, Urology] Demetri Dey MD [Physician, Urology] Stand Alone Forms: Patient Portal/API
[2024-11-01] MEDS: HYDROMORPHONE 0.5 MG INJ IV (00:45)
[2024-11-01] MEDS: KETOROLAC 30 MG/ML VIAL 15 MG IV (01:00)
[2024-11-01 01:16] LABS: Add Manual Diff / Slide Review NO; Basophils Absolute Auto 0 /uL (0-100); Basophils Percent Auto 0.3 % (0-2); Eosinophils Absolute Auto 0 /uL (0-450); Eosinophils Percent Auto 0.2 % (2-4); Hemoglobin 9.5 g/dL (12.0-16.0); Lymphocytes Absolute Auto 1000 /uL (1100-4500); Lymphocytes Percent Auto 8.8 % (25-40); Mean Corpuscular HGB Conc 31.6 % (30-36); Mean Corpuscular Hemoglobin 22.1 PG (26-34); Mean Corpuscular Volume 70.1 fL (80-100); Monocytes Absolute Auto 400 /uL (0-900); Monocytes Percent Auto 3.8 % (3-14); Neutrophils Absolute Auto 9700 /uL (1500-7000); Neutrophils Percent Auto 86.9 % (50-75); Platelet Count 283 X10^3/uL (150-400); Red Blood Cell Count 4.28 X10^6/uL (4.0-5.2); Red Cell Distribution Width 18.4 % (11.6-14.8); White Blood Cell Count 11.1 X10^3/uL (4.5-11.0)
[2024-11-01 01:25] LABS: Alanine Aminotransferase 28 IU/L (<35); Albumin 4.4 g/dL (3.5-5.0); Albumin Globulin Ratio 1.5 (1.0-2.8); Alkaline Phosphatase 83 U/L (38-126); Aspartate Aminotransferase 26 IU/L (14-36); BUN Creatinine Ratio 14.7 (6-22); Bilirubin Total 0.7 mg/dL (0.2-1.3); Blood Urea Nitrogen 15 mg/dL (7-17); Calcium 9.4 mg/dL (8.4-10.2); Carbon Dioxide 22 mmol/L (22-32); Chloride 100 mmol/L (98-107); Estimated Glomerular Filt Rate > 60 mL/min (>60); Glucose 146 mg/dL (70-99); HEMOLYSIS < 15 (0-50); Potassium 3.9 mmol/L (3.4-5.1); Sodium 132 mmol/L (137-145); Total Protein 7.4 g/dL (6.3-8.2)
[2024-11-01] MEDS: HYDROCODONE/ACET 5/325 PREPACK 1 BOTTLE MISC (02:15)
[2024-11-01] MEDS: ONDANSETRON 4 MG ODT PREPACK 1 BOTTLE MISC (02:15)
== END 2024-11-01 02:21 | disposition home or self-care (01) ==
PROVIDERS: Emergency Provider Emergency Medicine
DX: N13.2 Hydronephrosis with renal and ureteral calculous obstruction (principal); Z87.442 Personal history of urinary calculi
CPT/HCPCS: 74176; 80053; 81003; 81015; 81025; 85025; 87086; 96374; 96375; 99283; 99284; J1171; J1885; J2405

== ENCOUNTER 2025-03-19 19:18 | Emergency (ER) | payer OTHER, SELFPAY ==
[2025-03-19] VITALS (11 sets, daily range): BP systolic 118–177; BP diastolic 56–82; PULSE 62–84; RESP 16–34; TEMP 36.7; O2SAT 96–99
--- NOTE | 2025-03-19 19:37 | DI.RAD.S_ITS ---
PROCEDURE: XR CHEST 1V INDICATIONS: Chest Pain TECHNIQUE: One view of the chest was acquired. COMPARISON: [facility], CR, XR CHEST 1V, 09/19/2022, 21:45. FINDINGS: New ugce-hc-onpplext bilateral perihilar and lower lobe peribronchial thickening with patchy lower lobe opacities, some of which may be related expiratory result; however, bronchitis, viral infection, bronchopneumonia, asthma or other process should be considered. Mild bibasilar subsegmental atelectasis some of which related expiratory result. Cardiopericardial silhouette and pulmonary vasculature within normal limits. No pneumothorax, no pleural effusion. IMPRESSION: Peribronchial thickening and patchy opacities as discussed above. Follow-up suggested. If symptoms persist or worsen, or there is high clinical suspicion of thoracic abnormality, CT chest could be performed. Dictated by: Carl Fraser M.D. on 03/19/2025 at 21:22 Approved by: Carl Fraser M.D. on 03/19/2025 at 21:24
[2025-03-19 19:47] LABS: Add Manual Diff / Slide Review NO; Hematocrit 32.0 % (36-46); Hemoglobin 10.2 g/dL (12.0-16.0); Lymphocytes Absolute Auto 1500 /uL (1100-4500); Mean Corpuscular HGB Conc 31.9 % (30-36); Mean Corpuscular Hemoglobin 22.4 PG (26-34); Mean Corpuscular Volume 70.2 fL (80-100); Platelet Count 333 X10^3/uL (150-400)
--- NOTE | 2025-03-19 19:48 | EKG_ITS ---
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
--- NOTE | 2025-03-19 19:55 | ED.GENADULT ---
HPI - General Adult General Chief complaint: Dizziness Stated complaint: Dizzy, BP spike, HR low, today Time Seen by Provider: 03/19/25 19:30 Source: patient Mode of arrival: Ambulatory History of Present Illness HPI narrative: 50-year-old female reports history of anemia, no prior transfusions, no known sources of bleeding, no heavy periods, today felt intermittently dizzy, her smart watch showed heart rate of 60 which is low for her, she took blood pressure which is elevated 165/100 which is high for her. She took a dose of propranolol 1:00 p.m. for anxiety. Also has had intermittent left anterior chest discomfort, left shoulder discomfort, she felt that likely is musculoskeletal. History of blood clots remote noted in context of , was treated at that time with a course of warfarin and Lovenox, once off medication had hypercoagulable blood testing workup which was reportedly negative, no other blood clotting issues. No leg pain or swelling symptoms. No history of known coronary artery disease or provocative testing. No chart history of diabetes, hypertension, hyperlipidemia, reportedly he is nonsmoker. Never smoked per substance abuse query triage. Related Data Home Medications ?Medication ?Instructions ?Recorded ?Confirmed propranolol 10 mg tablet 10 mg PO PRN PRN anxiety, elevated 11/01/24 11/01/24 heart rate tamsulosin 0.4 mg capsule (Flomax) 0.4 mg PO DAILY 11/01/24 11/01/24 Previous Rx's ?Medication ?Instructions ?Recorded hydrocodone 5 mg-acetaminophen 325 1 tab PO Q6H PRN pain #14 tabs 11/01/24 mg tablet Allergies Allergy/AdvReac Type Severity Reaction Status Date / Time No Known Drug Allergies Allergy Verified 03/19/25 19:32 Patient History Medical History Heart murmur Hypothyroidism (acquired) Exam Narrative Exam Narrative: GENERAL: Well-developed patient, in mild distress. HEAD: Atraumatic. Normocephalic. EYES: Pupils equal round and reactive. Extraocular motions intact. No scleral icterus. No injection or drainage. ENT: Nose without bleeding, purulent drainage. Throat without erythema, tonsillar hypertrophy or exudate. Airway patent. NECK: Trachea midline. Non tender CARDIOVASCULAR: Regular rate and rhythm without murmurs, gallops, or rubs. RESPIRATORY: Clear to auscultation. Breath sounds equal bilaterally. No wheezes, rales, or rhonchi. GASTROINTESTINAL: Abdomen soft, non-tender, nondistended. EXTREMITIES: No edema or joint tenderness. BACK: Nontender without deformity or crepitance. No flank tenderness. NEURO: AOx3. Motor functions grossly nonfocal. SKIN: No rash or erythema of visible areas Initial Vital Signs Initial Vital Signs: Vital Signs Pulse Rate 69 03/19/25 19:30 Pulse Oximetry 98 03/19/25 19:30 Scores HEART Score Heart Score history: Slightly Suspicious Heart Score EKG: Normal Heart Score Age: 45-64 years old Heart Score risk factors: No known risk factors Heart Score troponin: < or = to normal limit Heart Score Total: 1 Course Orders Ordered: ED Orders 03/19/25 21:47 Troponin I Stat 03/19/25 22:03 CT angio chest PE protocol Stat Discontinued Medications Aspirin (Aspirin 81 Mg Chew Tab) 324 mg PO NOW ONE Stop: 03/19/25 19:38 Last Admin: 03/19/25 19:51 Dose: Not Given Documented By: NEREYDA Sodium Chloride (Normal Saline 0.9%) 1,000 mls @ 1,000 mls/hr IV BOLUS ONE Stop: 03/19/25 23:03 Last Infusion: 03/19/25 23:35 Dose: Infused Documented By: Admin: 03/19/25 22:16 Dose: 1,000 mls/hr Documented By: ALTHEA Vital Signs Vital signs: Vital Signs - 8 hr 03/19/25 22:34 03/19/25 23:00 03/19/25 23:30 Pulse Rate 69 65 65 Respiratory Rate 18 34 H 24 Blood Pressure Pulse Oximetry 97 98 97 Oxygen Delivery Method 03/20/25 00:00 03/20/25 00:34 Pulse Rate 66 67 Respiratory Rate 15 20 Blood Pressure 115/55 L Pulse Oximetry 96 97 Oxygen Delivery Method Room Air Room Air Medical Decision Making Lab Data Lab results reviewed: Yes I reviewed the patient's lab results. Lab results narrative: White blood cell count 9100, hemoglobin 10.2, platelets adequate. Glucose 119. Normal renal function, serum CO2, serum potassium. Sodium 136 slight low. Liver functions normal. Lipase normal. Troponin negative/unmeasurable x2 interval sets. BNP 400s mild elevation only. Urine dip negative. 03/19/25 19:40 10/23/25 19:40 Labs: Lab Results 03/19/25 03/19/25 Range/Units 19:40 21:47 WBC 9.1 (4.5-11.0) X10^3/uL RBC 4.56 (4.0-5.2) X10^6/uL Hgb 10.2 L (12.0-16.0) g/dL Hct 32.0 L (36-46) % MCV 70.2 L (80-100) fL MCH 22.4 L (26-34) PG MCHC 31.9 (30-36) % RDW 20.9 H (11.6-14.8) % Plt Count 333 (150-400) X10^3/uL Neut % (Auto) 76.7 H (50-75) % Lymph % (Auto) 16.4 L (25-40) % [place] % (Auto) 4.9 (3-14) % Eos % (Auto) 1.2 L (2-4) % Baso % (Auto) 0.8 (0-2) % Neut # (Auto) 7000 (4453-2955) /uL Lymph # (Auto) 1500 (0287-4422) /uL [place] # (Auto) 400 (0-900) /uL Eos # (Auto) 100 (0-450) /uL Baso # (Auto) 100 (0-100) /uL PT 10.8 (9.4-12.5) SECONDS INR 1.0 (0.9-1.3) APTT 28 (25.1-36.5) SECONDS D-Dimer 512 H (<500) ng/ml Sodium 136 L (137-145) mmol/L Potassium 4.0 (3.4-5.1) mmol/L Chloride 103 (98-107) mmol/L Carbon Dioxide 24 (22-32) mmol/L BUN 13 (7-17) mg/dL Creatinine 0.83 (0.52-1.04) mg/dL Estimated GFR > 60 (>60) mL/min BUN/Creatinine Ratio 15.7 (6-22) Glucose 119 H (70-99) mg/dL Calcium 9.1 (8.4-10.2) mg/dL Magnesium 1.8 (1.6-2.3) mg/dL Total Bilirubin 0.3 (0.2-1.3) mg/dL AST 25 (14-36) IU/L ALT 24 (<35) IU/L Alkaline Phosphatase 108 (38-126) U/L Total Creatine Kinase 61 (30-135) U/L Troponin I < 0.012 < 0.012 (0.01-0.034) ng/mL NT-Pro-B Natriuret Pep 418 H (<125) pg/mL Total Protein 8.0 (6.3-8.2) g/dL Albumin 4.6 (3.5-5.0) g/dL Globulin 3.4 (1.7-4.1) g/dL Albumin/Globulin Ratio 1.4 (1.0-2.8) Lipase 86 (23-300) U/L Urine Dip Bedside Urine Glucose Negative Bedside Urine Bilirubin - Negative Bedside Urine Ketone - Negative Urine Specific Rogers 1.000 Bedside Urine Occult Blood - Negative Bedside Urine pH 6 Bedside Urine Protein - Negative Bedside Urine Urobilinogen - Negative Bedside Urine Nitrite - Negative Bedside Urine Leukocytes - Negative Esterase Point of care testing: Urine Dip Bedside Urine Glucose Negative Bedside Urine Bilirubin - Negative Bedside Urine Ketone - Negative Urine Specific Rogers 1.000 Bedside Urine Occult Blood - Negative Bedside Urine pH 6 Bedside Urine Protein - Negative Bedside Urine Urobilinogen - Negative Bedside Urine Nitrite - Negative Bedside Urine Leukocytes - Negative Esterase Imaging Data Chest x-ray: Radiologist's Impression: [address] [address] XRay Report Signed Patient: Layne Tompkins MR#: [id number] : 1975 Acct:[id number] Age/Sex: 50 / F Date of Service: 03/19/25 Loc: ED Accession Number: [id number] Procedure: XR chest 1V Ordering Provider: Kenji Kahn MD PROCEDURE: XR CHEST 1V INDICATIONS: Chest Pain TECHNIQUE: One view of the chest was acquired. COMPARISON: [facility], , XR CHEST 1V, 09/19/2022, 21:45. FINDINGS: New nool-ia-vuudicex bilateral perihilar and lower lobe peribronchial thickening with patchy lower lobe opacities, some of which may be related expiratory result; however, bronchitis, viral infection, bronchopneumonia, asthma or other process should be considered. Mild bibasilar subsegmental atelectasis some of which related expiratory result. Cardiopericardial silhouette and pulmonary vasculature within normal limits. No pneumothorax, no pleural effusion. IMPRESSION: Peribronchial thickening and patchy opacities as discussed above. Follow-up suggested. If symptoms persist or worsen, or there is high clinical suspicion of thoracic abnormality, CT chest could be performed. Dictated by: Carl Fraser M.D. on 03/19/2025 at 21:22 Approved by: Carl Fraser M.D. on 03/19/2025 at 21:24 CTA chest PE protocol: Radiologist's Impression: [address] [address] [address] Scan Report Signed Patient: Layne Tompkins MR#: [id number] : 1975 Acct:[id number] Age/Sex: 50 / F Date of Service: 03/19/25 Loc: ED Accession Number: [id number] Procedure: CT angio chest PE protocol Ordering Provider: Kenji Kahn MD PROCEDURE: CT ANGIO CHEST PE PROTOCOL INDICATIONS: chest pain, hx PE, Ddimer elevated TECHNIQUE: After the administration of intravenous contrast, 2 mm thick sections acquired from the pulmonary apices to the posterior costophrenic angles. 3-dimensional maximum intensity projection (MIP) coronal and sagittal reformats were then acquired through the thorax. For radiation dose reduction, the following was used: automated exposure control, adjustment of mA and/or kV according to patient size. COMPARISON: None. FINDINGS: Image quality: Diagnostic. Pulmonary arteries: Pulmonary arteries are normal in size, and demonstrate no intraluminal filling defects to suggest central pulmonary embolism. Lower Neck: No enlarged lymph nodes. Thyroid: No thyroid nodules which require sonographic follow up, per consensus guidelines. Axillae: No enlarged lymph nodes. Chest Wall: Unremarkable. Bones: No suspicious osseous lesion. Lungs and Pleura: No pneumothorax or pleural effusions. Tiny opacity at the right lung base. No mass or significant pulmonary nodule seen. A few calcified granuloma. The central airways are clear. Heart: Heart size is normal. No pericardial effusion. Thoracic Vessels: No aortic aneurysm. No dissection. Mediastinum and [place]: No enlarged lymph nodes. Esophagus: No wall thickening. No hiatal hernia. Upper Abdomen: Hepatic steatosis. Small nonobstructing left kidney stones. Small gastric diverticulum. IMPRESSION: 1. No pulmonary embolism. 2. No significant acute airspace opacity. This report is concordant with the overnight preliminary interpretation. Dictated by: Dillan Singh M.D. on 03/20/2025 at 2:36 Approved by: Dillan Singh M.D. on 03/20/2025 at 2:43 ECG Data Attestation: I personally reviewed and interpreted this ECG as follows: Interpretation: 1948, normal sinus rhythm with rate of 67, no obvious ST segment elevation or depression changes. PA 164, QRS 88, QTC 473. MDM Narrative Medical decision making narrative: 50-year-old female with history of anxiety, anemia, had sensation of dizziness today, elevated blood pressure, low heart rate of 60, took her propranolol dose, also intermittent left anterior chest discomfort she felt likely was musculoskeletal, pulled muscle in her left shoulder. No known coronary artery disease. No known diabetes, hypertension, smoking, hypercholesterolemia. No leg pain or swelling symptoms. DDx consider anxiety, musculoskeletal discomfort, seems atypical for ACS, prior remote PE/DVT but peripartum post seemed provoked with subsequent negative hypercoagulable workup, reactive airways, pneumonia, other. EKG, chest x-ray, labs pending. Heart score = 1. EKG normal sinus rhythm without obvious ischemic changes. Chest x-ray, no acute changes. See radiology report. Lab data: White blood cell count 9100, hemoglobin 10.2, platelets adequate. Glucose 119. Normal renal function, serum CO2, serum potassium. Sodium 136 slight low. Liver functions normal. Lipase normal. Troponin negative/unmeasurable x2 interval sets. BNP 400s mild elevation only. Urine dip negative. CT angiogram chest PE protocol. No pulmonary embolus, no acute thoracic pathology described. See radiology report. Further workup as an outpatient. Discharged home with family. Discharge Plan Departure Patient Disposition: Home Clinical Impression: Dizziness, Hypertension Activity Restrictions/Additional Instructions: History of anxiety, on propranolol. Today with some dizziness and elevated blood pressure of unclear etiology. EKG and blood testing not suggestive of heart attack today. Chest x-ray showed no acute changes. We added a D-dimer which was elevated, and did further workup to make sure you did not have a blood clot to lungs again, you had a history of blood clots to the lungs after years ago in a provoked setting with reported negative follow up hyper coagulation studies workup. CT angiogram of the lungs did not show blood clots to the lungs or acute thoracic findings today. Unclear cause of your symptoms today. Further workup as an outpatient for now. Follow up with your regular doctor early next week. Return to this/nearest emergency department for any change worsening symptoms or concerns prior. Prescriptions: No Action tamsulosin [Flomax] 0.4 mg capsule 0.4 mg PO DAILY propranolol 10 mg tablet 10 mg PO PRN PRN (Reason: anxiety, elevated heart rate) hydrocodone-acetaminophen 5-325 mg tablet 1 tab PO Q6H PRN (Reason: pain) Qty: 14 0RF Stand Alone Forms: Patient Portal/API
[2025-03-19 20:05] LABS: INR 1.0 (0.9-1.3); Prothrombin Time 10.8 SECONDS (9.4-12.5)
[2025-03-19 20:08] LABS: PTT Partial Thromboplastin Tim 28 SECONDS (25.1-36.5)
[2025-03-19 20:09] LABS: Alanine Aminotransferase 24 IU/L (<35); Albumin 4.6 g/dL (3.5-5.0); Albumin Globulin Ratio 1.4 (1.0-2.8); Alkaline Phosphatase 108 U/L (38-126); Blood Urea Nitrogen 13 mg/dL (7-17); Calcium 9.1 mg/dL (8.4-10.2); Carbon Dioxide 24 mmol/L (22-32); Chloride 103 mmol/L (98-107); Creatine Kinase 61 U/L (30-135); Estimated Glomerular Filt Rate > 60 mL/min (>60); Globulin 3.4 g/dL (1.7-4.1); Glucose 119 mg/dL (70-99); HEMOLYSIS < 15 (0-50); Lipase 86 U/L (23-300); Magnesium 1.8 mg/dL (1.6-2.3); Potassium 4.0 mmol/L (3.4-5.1); Sodium 136 mmol/L (137-145); Total Protein 8.0 g/dL (6.3-8.2)
[2025-03-19 20:21] LABS: NT-proBNP (BNP-Adult 18+) 418 pg/mL (<125); Troponin I < 0.012 ng/mL (0.01-0.034)
--- NOTE | 2025-03-19 22:03 | DI.CT.S_ITS ---
PROCEDURE: CT ANGIO CHEST PE PROTOCOL INDICATIONS: chest pain, hx PE, Ddimer elevated TECHNIQUE: After the administration of intravenous contrast, 2 mm thick sections acquired from the pulmonary apices to the posterior costophrenic angles. 3-dimensional maximum intensity projection (MIP) coronal and sagittal reformats were then acquired through the thorax. For radiation dose reduction, the following was used: automated exposure control, adjustment of mA and/or kV according to patient size. COMPARISON: None. FINDINGS: Image quality: Diagnostic. Pulmonary arteries: Pulmonary arteries are normal in size, and demonstrate no intraluminal filling defects to suggest central pulmonary embolism. Lower Neck: No enlarged lymph nodes. Thyroid: No thyroid nodules which require sonographic follow up, per consensus guidelines. Axillae: No enlarged lymph nodes. Chest Wall: Unremarkable. Bones: No suspicious osseous lesion. Lungs and Pleura: No pneumothorax or pleural effusions. Tiny opacity at the right lung base. No mass or significant pulmonary nodule seen. A few calcified granuloma. The central airways are clear. Heart: Heart size is normal. No pericardial effusion. Thoracic Vessels: No aortic aneurysm. No dissection. Mediastinum and Eld[place]: No enlarged lymph nodes. Esophagus: No wall thickening. No hiatal hernia. Upper Abdomen: Hepatic steatosis. Small nonobstructing left kidney stones. Small gastric diverticulum. IMPRESSION: 1. No pulmonary embolism. 2. No significant acute airspace opacity. This report is concordant with the overnight preliminary interpretation. Dictated by: Dillan Singh M.D. on 03/20/2025 at 2:36 Approved by: Dillan Singh M.D. on 03/20/2025 at 2:43
[2025-03-19 22:16] LABS: Troponin I < 0.012 ng/mL (0.01-0.034)
[2025-03-19] MEDS: SODIUM CHLORIDE 0.9% 1,000 ML 1000 ML IV (22:16)
[2025-03-20] VITALS: PULSE 66; RESP 15; O2SAT 96
[2025-03-20 00:34] VITALS: BP 115/55; PULSE 67; RESP 20; O2SAT 97
== END 2025-03-20 00:35 | disposition home or self-care (01) ==
PROVIDERS: Emergency Provider Emergency Medicine
DX: R42 Dizziness and giddiness (principal); I10 Essential (primary) hypertension; R07.9 Chest pain, unspecified; M25.512 Pain in left shoulder
CPT/HCPCS: 36415; 71045; 71275; 80053; 81003; 82550; 83690; 83735; 83880; 84484; 85025; 85379; 85610; 85730; 93005; 93010; 96360; 99284; J7030; Q9967

== ENCOUNTER 2025-04-13 02:00 | Emergency (ER) | payer OTHER, SELFPAY ==
[2025-04-13 02:02] VITALS: BP 190/81; PULSE 77; RESP 18; TEMP 36.6; O2SAT 95; BMI 36.3
--- NOTE | 2025-04-13 02:03 | ED.ALLEREA ---
HPI - Allergic Reaction General Stated complaint: allergic reaction, lump in throat, wheezing Time Seen by Provider: 04/13/25 02:02 History of Present Illness HPI narrative: 50y F hx of braydon thryoiditis presents with allergic reaction started 3 days ago with hands, feet, and lump in throat seen at walk in clinic given benadryl, pepcid, prednisone and also epi -pen presents this evening with throat tightness and lump in throat and can hear faint wheezing came in to be evaluated. Patient is currently on no medications or herbal supplements or vitamins. Patient attributes possibility to [place] food but denies any new soaps, lotions, detergents, pets, foreign travel. Other than what is stated 14 pt ROS is negative. Related Data Home Medications ?Medication ?Instructions ?Recorded ?Confirmed propranolol 10 mg tablet 10 mg PO PRN PRN anxiety, elevated 11/01/24 11/01/24 heart rate tamsulosin 0.4 mg capsule (Flomax) 0.4 mg PO DAILY 11/01/24 11/01/24 Previous Rx's ?Medication ?Instructions ?Recorded hydrocodone 5 mg-acetaminophen 325 1 tab PO Q6H PRN pain #14 tabs 11/01/24 mg tablet Allergies Allergy/AdvReac Type Severity Reaction Status Date / Time No Known Drug Allergies Allergy Verified 04/13/25 02:10 Review of Systems Review of Systems ROS Unobtainable: All systems reviewed & are unremarkable except as noted in HPI and below Patient History Medical History Heart murmur Hypothyroidism (acquired) Exam Narrative Exam Narrative: GENERAL: [50] year old patient appears stated age. Well-developed patient, in mild distress. HEAD: Atraumatic. Normocephalic. EYES: Pupils equal round and reactive. Extraocular motions intact. No scleral icterus. No injection or drainage. ENT: Nose without bleeding, purulent drainage. Throat without erythema, tonsillar hypertrophy or exudate. Airway patent. NECK: Trachea midline. Non tender CARDIOVASCULAR: Regular rate and rhythm without murmurs, gallops, or rubs. RESPIRATORY: Clear to auscultation. Breath sounds equal bilaterally. No wheezes, rales, or rhonchi. EXTREMITIES: No edema or joint tenderness. BACK: Nontender without deformity or crepitance. No flank tenderness. NEURO: AOx3. SKIN: No rash or erythema of visible areas MDM - Allergic Reaction MDM Narrative Medical decision making narrative: All labwork, vital signs, sba business development officer note, medication list, previous ER visits and all imaging studies reviewed. Pt is asymptomatic now, lump in throat and tightness has resolved on its own. I have encouraged her to get allergy testing once this episode subsides. She has all the medications at home including EpiPen. Discharge Plan Departure Patient Disposition: Home Clinical Impression: Allergic reaction Activity Restrictions/Additional Instructions: Return with new or worsening symptoms. Continue to take medications as previously prescribed. Follow up with pcp this week if no improvement in symptoms. Prescriptions: No Action tamsulosin [Flomax] 0.4 mg capsule 0.4 mg PO DAILY propranolol 10 mg tablet 10 mg PO PRN PRN (Reason: anxiety, elevated heart rate) hydrocodone-acetaminophen 5-325 mg tablet 1 tab PO Q6H PRN (Reason: pain) Qty: 14 0RF Stand Alone Forms: Patient Portal/API
== END 2025-04-13 02:39 | disposition home or self-care (01) ==
PROVIDERS: Emergency Provider Family Medicine
DX: T78.40XA Allergy, unspecified, initial encounter (principal)
CPT/HCPCS: 99281